=== PATIENT | female | born 1940 | race Caucasian/White ===

== ENCOUNTER 2016-12-14 09:34 | Outpatient (CLI) | payer MEDICARE, BC ==
[~2016-12-14] VITALS: Ht 152.4 cm; Wt 62.3 kg
[2016-12-14 10:25] VITALS: BP 144/59; PULSE 71; TEMP 97.6
[2016-12-14] MEDS ORDERED: SYNTHROID0.088 MG/T PO (10:57)
[2016-12-14] MEDS ORDERED: NORCO 325 MG-51 TAB PO (10:57)
[2016-12-14] MEDS ORDERED: PROTONIX 40MG T40 MG PO (10:57)
[2016-12-14 10:59] LABS: PH 5 (5-8); SQUAMOUS EPITHELIAL None Seen /hpf; URINE APPEARANCE Clear; URINE BACTERIA None Seen /hpf; URINE BILIRUBIN Negative (NEGATIVE); URINE BLOOD Negative (NEGATIVE); URINE COLOR Yellow; URINE GLUCOSE Negative (NEGATIVE); URINE KETONE Negative (NEGATIVE); URINE UROBILINOGEN Negative (NEGATIVE)
[2016-12-14] MEDS ORDERED: BENADRYL25 M2 PO (11:03)
[2016-12-14] MEDS ORDERED: VITAMIN D32000 IU PO (11:04)
[2016-12-14] MEDS ORDERED: CELEBREX 200MG200 MG PO (11:04)
[2016-12-14] MEDS ORDERED: ZESTRIL 5MG5 MG PO (11:04)
[2016-12-14] MEDS ORDERED: MILLIPRED5 MG PO (11:04)
[2016-12-14] MEDS ORDERED: DITROPAN 5MG TAB5 MG PO (11:05)
== END 2016-12-14 11:16 | disposition home or self-care (01) ==
LOC: EUO 09:34 → EDBD 09:34 → EUO 10:00
PROVIDERS: Family Medicine
DX: N39.0 Urinary tract infection, site not specified (principal)

== ENCOUNTER → 2017-01-08 | Outpatient (CLI) | payer MEDICARE, BC ==
[~2017-01-08] MED LIST: ARAVA 20MG TABL20 MG PO; ASPIRIN 81M81 MG/TA2 PO; BENADRYL25 M2 PO; CEFTIN 250250 MG/TAB PO; CELEBREX 200MG200 MG PO; CLARITIN 1010 MG/TAB PO; CRANBERRY FRUI425 MG PO; CRANBERRY450 MG PO; DITROPAN 5MG TAB5 MG PO; FERROUS SU325 MG/TAB PO; MILLIPRED5 MG PO; MIRAPEX 1MG PO; NORCO 325 MG-51 TAB PO; NORCO 325 MG-7.1 TAB PO; PEPCID 20MG TAB20 MG PO; PREDNISONE 5MG5 MG PO; PRINIVIL10 MG PO; PROTONIX 40MG T40 MG PO; SALINE MIST 4545 ML NS; SYNTHROID0.088 MG/T PO; VITAMIN D32000 I1 PO; VITAMIN D32000 IU PO; ZESTRIL 10MG10 MG PO; ZESTRIL 5MG5 MG PO
== END ==
LOC: COL.RAD 10:09
DX: H53.2 Diplopia (principal); Z86.73 Personal history of transient ischemic attack (TIA), and cerebral infarction without residual deficits

== ENCOUNTER → 2017-02-24 | Outpatient (REF) | LOC: ZLAB.WCH 15:43 | DX: Z01.89 Encounter for other specified special examinations (principal) ==

== ENCOUNTER 2017-04-13 11:09 | Emergency (ER) | payer MEDICARE, BC ==
[~2017-04-13] VITALS: Ht 149.9 cm; Wt 59.1 kg
[~2017-04-13 11:09] MED LIST changes: -ARAVA 20MG TABL20 MG PO; -ASPIRIN 81M81 MG/TA2 PO; -CEFTIN 250250 MG/TAB PO; -CLARITIN 1010 MG/TAB PO; -CRANBERRY FRUI425 MG PO; -CRANBERRY450 MG PO; -FERROUS SU325 MG/TAB PO; -MIRAPEX 1MG PO; -NORCO 325 MG-7.1 TAB PO; -PEPCID 20MG TAB20 MG PO; -PREDNISONE 5MG5 MG PO; -PRINIVIL10 MG PO; -SALINE MIST 4545 ML NS; -VITAMIN D32000 I1 PO; -ZESTRIL 10MG10 MG PO
[2017-04-13 11:10] VITALS: TEMP 97.9
[2017-04-13] MEDS ORDERED: CELEBREX 200MG200 MG PO (11:58)
[2017-04-13] MEDS ORDERED: CLARITIN 1010 MG/TAB PO (11:58)
[2017-04-13] MEDS ORDERED: ARAVA 20MG TABL20 MG PO (11:59)
[2017-04-13] MEDS ORDERED: FERROUS SU325 MG/TAB PO (11:59)
[2017-04-13] MEDS ORDERED: CRANBERRY450 MG PO (11:59)
[2017-04-13] MEDS ORDERED: MIRAPEX 1MG PO (12:00)
[2017-04-13] MEDS ORDERED: ZESTRIL 10MG10 MG PO (12:00)
[2017-04-13] MEDS ORDERED: NORCO 325 MG-7.1 TAB PO (12:00)
[2017-04-13] MEDS ORDERED: PEPCID 20MG TAB20 MG PO (12:01)
[2017-04-13] MEDS ORDERED: PREDNISONE 5MG5 MG PO (12:01)
[2017-04-13] MEDS ORDERED: DITROPAN 5MG TAB5 MG PO (12:01)
[2017-04-13] MEDS ORDERED: PROTONIX 40MG T40 MG PO (12:02)
[2017-04-13] MEDS ORDERED: SALINE MIST 4545 ML NS (12:02)
[2017-04-13] MEDS ORDERED: VITAMIN D32000 I1 PO (12:03)
[2017-04-13] MEDS ORDERED: SYNTHROID0.088 MG/T PO (12:03)
[2017-04-13 12:39] LABS: BASO # 0.1 (0.0-0.2); BASO % 0.8 % (0.0-2.0); EOS # 0.2 (0.0-0.7); GRAN % 82.7 % (42.2-75.2); HEMATOCRIT 39.8 % (37.0-47.0); HEMOGLOBIN 12.8 g/dl (12.5-16.0); LYMPH # 0.8 (1.2-3.4); LYMPH % 8.6 % (20.0-51.0); MEAN CELL VOLUME 92 fl (80.0-100.0); MEAN CORPUSCULAR HEMOGLOBIN 30 pg (27.0-31.0); MEAN CORPUSCULAR HGB CONC 32 g/dl (33.0-37.0); MEAN PLATELET VOLUME 11.3 fl (7.4-10.4); MONO # 0.6 (0.1-0.6); MONO % 5.7 % (1.7-9.3); PLATELET COUNT 145 K/mm3 (130-400); RED BLOOD COUNT 4.33 M/mm3 (4.10-5.30); REDCELL DISTRIBUTION WIDTH-CV 12.8 % (11.5-14.5); WHITE BLOOD COUNT 9.6 K/mm3 (4.8-10.8)
[2017-04-13 12:54] LABS: ADJUSTED CALCIUM 9.4 mg/dL (8.4-10.2); BILIRUBIN,TOTAL 0.8 mg/dL (0.0-1.0); CALCIUM 9.4 mg/dL (8.4-10.2); CREATININE, serum 0.68 mg/dL (0.52-1.25); POTASSIUM 3.5 mmol/L (3.4-5.0); TOTAL PROTEIN 7.1 gm/dL (6.4-8.2)
[2017-04-13 13:19] LABS: PH 6 (5-8); SQUAMOUS EPITHELIAL None Seen /hpf; URINE APPEARANCE Clear; URINE BACTERIA Many /hpf; URINE BILIRUBIN Negative (NEGATIVE); URINE BLOOD Negative (NEGATIVE); URINE COLOR Straw; URINE GLUCOSE Negative (NEGATIVE); URINE KETONE Negative (NEGATIVE); URINE RBC None Seen /hpf; URINE UROBILINOGEN Negative (NEGATIVE)
[2017-04-13 14:15] VITALS: BP 166/82; PULSE 80
== END 2017-04-13 14:25 | disposition home or self-care (01) ==
LOC: COL.ER 11:09
PROVIDERS: Emergency Medicine
DX: G45.9 Transient cerebral ischemic attack, unspecified (principal); I10 Essential (primary) hypertension; Z96.653 Presence of artificial knee joint, bilateral
CPT/HCPCS: J7030

== ENCOUNTER 2017-05-05 23:38 | Observation (INO) | payer MEDICARE, BC ==
[~2017-05-05] VITALS: Ht 162.6 cm; Wt 62.3 kg
[~2017-05-05 23:38] MED LIST changes: +ARAVA 20MG TABL20 MG PO; +CLARITIN 1010 MG/TAB PO; +CRANBERRY450 MG PO; +FERROUS SU325 MG/TAB PO; +MIRAPEX 1MG PO; +NORCO 325 MG-7.1 TAB PO; +PEPCID 20MG TAB20 MG PO; +PREDNISONE 5MG5 MG PO; +SALINE MIST 4545 ML NS; +VITAMIN D32000 I1 PO; +ZESTRIL 10MG10 MG PO
[2017-05-06 00:22] LABS: BASO # 0.1 (0.0-0.2); BASO % 1.2 % (0.0-2.0); EOS # 0.2 (0.0-0.7); EOS % 3.3 % (0-4.0); GRAN # 4.7 (1.4-6.5); GRAN % 64.3 % (42.2-75.2); HEMATOCRIT 40.4 % (37.0-47.0); HEMOGLOBIN 13.4 g/dl (12.5-16.0); LYMPH # 1.6 (1.2-3.4); LYMPH % 21.1 % (20.0-51.0); MEAN CELL VOLUME 89 fl (80.0-100.0); MEAN CORPUSCULAR HEMOGLOBIN 30 pg (27.0-31.0); MEAN CORPUSCULAR HGB CONC 33 g/dl (33.0-37.0); MEAN PLATELET VOLUME 11.5 fl (7.4-10.4); MONO # 0.7 (0.1-0.6); MONO % 9.7 % (1.7-9.3); PLATELET COUNT 151 K/mm3 (130-400); RED BLOOD COUNT 4.52 M/mm3 (4.10-5.30); REDCELL DISTRIBUTION WIDTH-CV 13.2 % (11.5-14.5); WHITE BLOOD COUNT 7.3 K/mm3 (4.8-10.8)
[2017-05-06 00:33] LABS: CALCIUM 9.3 mg/dL (8.4-10.2); CREATININE, serum 0.7 mg/dL (0.52-1.25); POTASSIUM 3.5 mmol/L (3.4-5.0)
[2017-05-06] MEDS ORDERED: PRINIVIL10 MG PO (02:20)
[2017-05-06] MEDS ORDERED: NORCO 325 MG-7.1 TAB PO (02:22)
[2017-05-06 02:23] LABS: PH 5 (5-8); SQUAMOUS EPITHELIAL None Seen /hpf; URINE APPEARANCE Hazy; URINE BACTERIA Occasional /hpf; URINE BILIRUBIN Negative (NEGATIVE); URINE BLOOD Negative (NEGATIVE); URINE COLOR Yellow; URINE GLUCOSE Negative (NEGATIVE); URINE KETONE Negative (NEGATIVE); URINE RBC 0-2 /hpf; URINE UROBILINOGEN Negative (NEGATIVE); URINE WBC 20-50 /hpf
[2017-05-06] MEDS ORDERED: ASPIRIN 81M81 MG/TA2 PO (02:42)
[2017-05-06] MEDS ORDERED: BENADRYL25 M2 PO ×2 (02:43)
[2017-05-06 03:42] VITALS: BP 137/50; PULSE 93; TEMP 98.7
[2017-05-06 07:39] VITALS: BP 101/44; PULSE 94; TEMP 98.4
[2017-05-06 11:20] LABS: CALCIUM 8.4 mg/dL (8.4-10.2); CREATININE, serum 0.67 mg/dL (0.52-1.25); POTASSIUM 4.4 mmol/L (3.4-5.0)
[2017-05-06 11:31] VITALS: BP 127/52; PULSE 92
[2017-05-06 15:32] VITALS: BP 129/63; PULSE 99
[2017-05-06 20:42] VITALS: BP 154/90; PULSE 108; TEMP 97.2
[2017-05-07 00:36] VITALS: BP 146/68; PULSE 82; TEMP 98.2
[2017-05-07 02:33] VITALS: BP 156/74; PULSE 93; TEMP 97.7
[2017-05-07 07:52] VITALS: BP 143/87; PULSE 76; TEMP 98.5
[2017-05-07] MEDS ORDERED: CEFTIN 250250 MG/TAB PO (08:10)
[2017-05-07 11:08] VITALS: BP 137/56; PULSE 73; TEMP 98.2
== END 2017-05-07 13:53 | disposition home or self-care (01) ==
LOC: COL.ER 23:38 → MEDICAL 05-06 01:26
PROVIDERS: Emergency Medicine; Nurse Practitioner Family
DX: I10 Essential (primary) hypertension (principal); N39.0 Urinary tract infection, site not specified; E87.1 Hypo-osmolality and hyponatremia; E03.9 Hypothyroidism, unspecified; E44.0 Moderate protein-calorie malnutrition; K21.9 Gastro-esophageal reflux disease without esophagitis; M06.9 Rheumatoid arthritis, unspecified; G25.81 Restless legs syndrome; Z96.653 Presence of artificial knee joint, bilateral; Z90.710 Acquired absence of both cervix and uterus; Z96.642 Presence of left artificial hip joint; Z96.611 Presence of right artificial shoulder joint; Z86.73 Personal history of transient ischemic attack (TIA), and cerebral infarction without residual deficits
CPT/HCPCS: G0378; G8987-GO; G8988-GO; J0360; J0696; J3010; J7030; J7512

== ENCOUNTER 2017-06-11 04:03 | Inpatient (IN) | payer MEDICARE, BC ==
[~2017-06-11] VITALS: Ht 149.9 cm; Wt 58.3 kg
[~2017-06-11 04:03] MED LIST changes: +ASPIRIN 81M81 MG/TA2 PO; +CEFTIN 250250 MG/TAB PO; +PRINIVIL10 MG PO
[2017-06-11 04:55] LABS: ADJUSTED CALCIUM 9.7 mg/dL (8.4-10.2); ALBUMIN 3.9 gm/dL (3.5-5.0); BILIRUBIN,TOTAL 0.6 mg/dL (0.0-1.0); CALCIUM 9.6 mg/dL (8.4-10.2); CREATININE, serum 0.68 mg/dL (0.52-1.25); TOTAL PROTEIN 7.1 gm/dL (6.4-8.2)
[2017-06-11 05:17] LABS: BASO # 0.1 (0.0-0.2); EOS # 0.4 (0.0-0.7); EOS % 4.3 % (0-4.0); GRAN # 6.7 (1.4-6.5); GRAN % 68.7 % (42.2-75.2); LYMPH # 1.6 (1.2-3.4); LYMPH % 16.3 % (20.0-51.0); MEAN CELL VOLUME 90 fl (80.0-100.0); MEAN CORPUSCULAR HGB CONC 33 g/dl (33.0-37.0); MONO # 0.9 (0.1-0.6); MONO % 9.2 % (1.7-9.3); PLATELET COUNT 174 K/mm3 (130-400); RED BLOOD COUNT 3.86 M/mm3 (4.10-5.30); REDCELL DISTRIBUTION WIDTH-CV 13.2 % (11.5-14.5); WHITE BLOOD COUNT 9.8 K/mm3 (4.8-10.8)
[2017-06-11 05:18] LABS: HEMATOCRIT 34.7 % (37.0-47.0); HEMOGLOBIN 11.4 g/dl (12.5-16.0); MEAN CORPUSCULAR HEMOGLOBIN 30 pg (27.0-31.0)
[2017-06-11] MEDS ORDERED: CRANBERRY FRUI425 MG PO (05:24)
[2017-06-11 05:29] LABS: PH 6 (5-8); SQUAMOUS EPITHELIAL None Seen /hpf; URINE APPEARANCE Clear; URINE BACTERIA None Seen /hpf; URINE BILIRUBIN Negative (NEGATIVE); URINE BLOOD Negative (NEGATIVE); URINE COLOR Yellow; URINE GLUCOSE Negative (NEGATIVE); URINE KETONE Negative (NEGATIVE); URINE RBC 0-2 /hpf; URINE UROBILINOGEN Negative (NEGATIVE); URINE WBC 0-2 /hpf
[2017-06-11 08:29] VITALS: BP 157/74; PULSE 81; TEMP 97.6
[2017-06-11 12:01] VITALS: BP 151/59; PULSE 78; TEMP 97.4
[2017-06-11 12:13] VITALS: BP 151/59; PULSE 78; TEMP 97.4
[2017-06-11 16:18] VITALS: BP 152/64; PULSE 76; TEMP 97.5
[2017-06-11 20:06] VITALS: BP 152/81; PULSE 72; TEMP 97.8
[2017-06-11 23:12] VITALS: BP 155/62; PULSE 77; TEMP 98.1
[2017-06-12 03:22] VITALS: BP 142/65; PULSE 80; TEMP 97.6
[2017-06-12 07:22] LABS: BASO # 0.1 (0.0-0.2); EOS # 0.6 (0.0-0.7); EOS % 7.8 % (0-4.0); GRAN # 4.4 (1.4-6.5); GRAN % 60.5 % (42.2-75.2); LYMPH # 1.5 (1.2-3.4); LYMPH % 20.6 % (20.0-51.0); MEAN CELL VOLUME 92 fl (80.0-100.0); MEAN CORPUSCULAR HGB CONC 32 g/dl (33.0-37.0); MEAN PLATELET VOLUME 11.6 fl (7.4-10.4); MONO # 0.7 (0.1-0.6); MONO % 9.7 % (1.7-9.3); PLATELET COUNT 161 K/mm3 (130-400); RED BLOOD COUNT 3.85 M/mm3 (4.10-5.30); REDCELL DISTRIBUTION WIDTH-CV 13.2 % (11.5-14.5); WHITE BLOOD COUNT 7.3 K/mm3 (4.8-10.8)
[2017-06-12 07:28] LABS: HEMATOCRIT 35.4 % (37.0-47.0); HEMOGLOBIN 11.2 g/dl (12.5-16.0); MEAN CORPUSCULAR HEMOGLOBIN 29 pg (27.0-31.0)
[2017-06-12 07:41] LABS: CALCIUM 8.8 mg/dL (8.4-10.2); CREATININE, serum 0.63 mg/dL (0.52-1.25); POTASSIUM 4.1 mmol/L (3.4-5.0)
[2017-06-12 08:30] VITALS: BP 154/71; PULSE 73; TEMP 97.8
[2017-06-12 11:44] VITALS: BP 147/62; PULSE 80; TEMP 97.6
[2017-06-12 15:42] VITALS: BP 163/74; PULSE 74; TEMP 98.4
[2017-06-12 20:46] VITALS: BP 155/81; PULSE 78; TEMP 98.6
[2017-06-13 00:18] VITALS: BP 135/71; PULSE 80; TEMP 98.5
[2017-06-13 04:00] VITALS: BP 156/69; PULSE 74; TEMP 98.5
[2017-06-13 08:03] VITALS: BP 154/65; PULSE 81; TEMP 98.1
[2017-06-13 11:43] VITALS: BP 138/82; PULSE 80; TEMP 97.8
== END 2017-06-13 15:50 | DRG 65 ==
LOC: COL.ER 04:03 → SURG 05:33 → MEDICAL 08:11
PROVIDERS: Emergency Medicine; Family Medicine
DX: I63.132 Cerebral infarction due to embolism of left carotid artery (principal); E87.1 Hypo-osmolality and hyponatremia; R47.02 Dysphasia; I10 Essential (primary) hypertension; I08.2 Rheumatic disorders of both aortic and tricuspid valves; M06.9 Rheumatoid arthritis, unspecified; M80.08XD Age-related osteoporosis with current pathological fracture, vertebra(e), subsequent encounter for fracture with routine healing
CPT/HCPCS: 99233-AI; 99239; G0378; G8978-GP; G8979-GP; G8996-GN; G8997-GN; J1650; J7030; J7512

== ENCOUNTER → 2017-06-30 | Outpatient (REF) ==
[~2017-06-30] MED LIST changes: +CRANBERRY FRUI425 MG PO
== END ==
LOC: ZLAB.WCH 17:58
DX: Z01.89 Encounter for other specified special examinations (principal)

== ENCOUNTER → 2017-07-07 | Outpatient (REF) | LOC: ZLAB.WCH 17:57 | DX: Z02.89 Encounter for other administrative examinations (principal) ==

== ENCOUNTER → 2018-01-21 | Outpatient (CLI) | payer MEDICARE, BC | LOC: ZCOL.LAB 15:34 | DX: I83.209 Varicose veins of unspecified lower extremity with both ulcer of unspecified site and inflammation (principal) ==

== ENCOUNTER → 2018-01-21 | Outpatient (CLI) | payer MEDICARE, BC | LOC: COL.VAS 08:07 | DX: L97.819 Non-pressure chronic ulcer of other part of right lower leg with unspecified severity (principal); R60.0 Localized edema; L97.829 Non-pressure chronic ulcer of other part of left lower leg with unspecified severity ==

== ENCOUNTER → 2018-02-02 | Outpatient (REF) | LOC: ZLAB.WCH 18:20 | DX: Z01.89 Encounter for other specified special examinations (principal) ==